=== PATIENT | male | born 1995 | race Asian ===

== ENCOUNTER 2021-12-26 05:27 | Emergency (ER) | payer SELFPAY ==
[~2021-12-26] VITALS: Ht 172.7 cm; Wt 72.6 kg
[2021-12-26] MEDS ORDERED: ASPIRIN 325 MG TABLET PO ONE (05:45)
[2021-12-26] MEDS ORDERED: ASPIRIN 325 MG TABLET ONE (05:49)
[2021-12-26] MEDS ORDERED: NITROGLYCERIN OINT 1 GM PACKET TP ONE ×2 (06:10→06:15)
[2021-12-26 06:15] LABS: HEMATOCRIT 49.2 % (36.7-47.1); MEAN CORPUSCULAR HEMOGLOBIN 29.7 uug (23.8-33.4); MEAN CORPUSCULAR VOLUME 85.5 fL (73.0-96.2); PLATELET COUNT (AUTO) 216 K/uL (152-348)
[2021-12-26 06:21] LABS: CARBON DIOXIDE 25 mmol/L (21-32); CHLORIDE 103 mmol/L (98-107); CREATININE 1.1 mg/dL (0.6-1.3); GLUCOSE 104 mg/dL (74-106); POTASSIUM 3.7 mmol/L (3.5-5.1); UREA NITROGEN, BLOOD 8 mg/dL (7-18)
--- NOTE | 2021-12-26 06:24 | NUR ---
Pt here for c/o chest pain. Denies SOB. Able to make needs known. No distress noted at this time.
[2021-12-26 06:35] LABS: ALANINE AMINOTRANSFERASE 261 U/L (16-63); ALKALINE PHOSPHATASE 76 U/L (50-136); ASPARTATE AMINOTRANSFERASE 70 U/L (15-37); BILIRUBIN,DIRECT 0.2 mg/dL (0.0-0.2); BILIRUBIN,TOTAL 0.9 mg/dL (0.2-1.0); TOTAL PROTEIN, SERUM 8.3 g/dL (6.4-8.2)
[2021-12-26] MEDS ORDERED: MAG HYDROX/AL HYDROX/SIMETH 30 ML LIQUID UDC PO ONE (08:30)
[2021-12-26] MEDS ORDERED: MAG HYDROX/AL HYDROX/SIMETH 30 ML LIQUID UDC ONE (08:37)
--- NOTE | 2021-12-26 09:04 | NUR ---
PT WAS D/C'd TO HOME. D/C INSTRUCTIONS GIVEN TO THE PT BY DR RODRÍGUEZ.
[2021-12-26 09:05] VITALS: BP 136/87
== END 2021-12-26 09:05 | disposition home or self-care (01) ==
LOC: ER 05:35
DX: R07.89 Other chest pain (principal); R94.31 Abnormal electrocardiogram [ECG] [EKG]; F14.90 Cocaine use, unspecified, uncomplicated
CPT/HCPCS: 36415; 71045; 84484; 85025; 85651; 93005; A4663